=== PATIENT | female | born 1960 | race American Indian/Alaskan Native ===

== ENCOUNTER 2016-09-08 21:48 | Emergency (ER) | payer SELFPAY ==
[2016-09-08 22:00] VITALS: BP 127/77
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
[2016-09-08 22:29] LABS: ACETAMINOPHEN < 10; CHLORIDE,CL 104 mmol/L (101-111); SODIUM,NA 138 mmol/L (135-145)
[2016-09-08] MEDS ORDERED: MVI, Adult with Vitamin K 10 ML, Thiamine 100 MG, Folic Acid 1 MG in Lactated Ringers 1... IV ONE ×4 (22:47)
== END 2016-09-08 23:30 ==
LOC: DL.ED 21:48
DX: S02.2XXA Fracture of nasal bones, initial encounter for closed fracture (principal); S50.11XA Contusion of right forearm, initial encounter; F10.129 Alcohol abuse with intoxication, unspecified; F17.210 Nicotine dependence, cigarettes, uncomplicated; T76.21XA Adult sexual abuse, suspected, initial encounter; Y90.9 Presence of alcohol in blood, level not specified
CPT/HCPCS: 36415; 70450; 70486; 72125; 80053; 85025; 99285; G0480

== ENCOUNTER 2017-08-30 23:23 | Emergency (ER) | payer SELFPAY ==
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
[2017-08-31 00:54] VITALS: BP 108/63
== END 2017-08-31 00:49 ==
LOC: DL.ED 23:23
DX: F10.10 Alcohol abuse, uncomplicated (principal); F17.210 Nicotine dependence, cigarettes, uncomplicated; Z79.899 Other long term (current) drug therapy
CPT/HCPCS: 80305; 81001; 99283